=== PATIENT | female | born 1960 | race Caucasian/White ===

== ENCOUNTER 2018-10-01 10:46 | Emergency (ER) | payer SELFPAY ==
[~2018-10-01] VITALS: Ht 154.9 cm; Wt 89.5 kg
[2018-10-01 10:47] VITALS: TEMP 97.1
[2018-10-01] MEDS ORDERED: SYNTHROID 0.0.025 MG PO (11:30)
[2018-10-01] MEDS ORDERED: ZOHYDRO ER10 MG PO (11:32)
[2018-10-01] MEDS ORDERED: NORCO 325 MG-51 TAB PO (11:33)
[2018-10-01 11:44] VITALS: BP 149/86; PULSE 62
== END 2018-10-01 11:55 | disposition home or self-care (01) ==
LOC: COL.ER 10:46
DX: S50.02XA Contusion of left elbow, initial encounter (principal); S80.02XA Contusion of left knee, initial encounter; E03.9 Hypothyroidism, unspecified; Z85.3 Personal history of malignant neoplasm of breast; W18.09XA Striking against other object with subsequent fall, initial encounter; Y93.H9 Activity, other involving exterior property and land maintenance, building and construction; Y92.511 Restaurant or cafe as the place of occurrence of the external cause